=== PATIENT | male | born 1955 | race Caucasian/White ===

== ENCOUNTER 2018-10-23 06:11 | Day surgery (SDC) | payer MEDICARE, OTHER ==
[2018-10-23] MEDS ORDERED: PROPOFOL 20 ML (07:43)
[2018-10-23] MEDS ORDERED: FENTAnyl 50 MCG/ML VIAL (07:43)
[2018-10-23 07:45] LABS: POTASSIUM 5.7 mmol/L (3.5-5.1)
[2018-10-23] MEDS ORDERED: hydrALAzine 20 MG INJ IV (08:00)
[2018-10-23] MEDS ORDERED: ONDANSETRON 4 MG INJ IV (08:00)
[2018-10-23] MEDS ORDERED: LABETALOL HCL 20MG INJ IV (08:00)
[2018-10-23 08:06] LABS: GLUCOSE, FASTING 140 mg/dl (70-110)
== END 2018-10-23 09:54 | disposition home or self-care (01) ==
LOC: GIL 06:11
DX: K29.00 Acute gastritis without bleeding (principal); K20.8 Other esophagitis; I12.0 Hypertensive chronic kidney disease with stage 5 chronic kidney disease or end stage renal disease; N18.6 End stage renal disease; Z99.2 Dependence on renal dialysis; E11.9 Type 2 diabetes mellitus without complications
CPT/HCPCS: 43239; 82947; 84132; 88305; 88312